=== PATIENT | male | born 1955 | race Caucasian/White ===

== ENCOUNTER 2016-12-28 16:16 | Emergency (ER) | payer OTHER ==
--- NOTE | ~2016-12-28 | CR72 ---
[facility] A Service of [facility] & [facility] / [facility] RADIOLOGY TEXT RESULTS PATIENT: ALIRIO MOLINA LOCATION: [facility] : 57 UNIT #: [id number] AGE: [address]: Tab Navarro MD SEX: M ORDER DR: [id number] [facility] [address] [place], [place] [address] [id number] MR#: [id number] Acc #: [id number] NAME: ALIRIO MOLINA : 1955 SEX: M STUDY DATE/TIME: 12/28/2016 16:53 UNIT: [facility] ROOM: STUDY DESCRIPTION: CR Chest Single View Portable Attending Physician: Tab Navarro M.D. Ordering Physician: Tab Navarro M.D. Primary Care Physician: Primary Care Physician No MEDICAL IMAGING REPORT This report is preliminary unless electronic signature is present EXAM Portable chest HISTORY Chest pain and syncope yesterday. FINDINGS The cardiac size and pulmonary vascularity are normal. No infiltrates or effusions. Internal fixation left clavicle. Multiple old left rib fractures. IMPRESSION No acute findings. Dictated by... Cristo Goldstein M.D. THIS IS AN ELECTRONICALLY VERIFIED REPORT Cristo Goldstein M.D. at 12/29/2016 11:30 PM DFL/judith TD: 12/29/2016 03:44 JOB #: [id number] MEDICAL IMAGING REPORT Page 1 of 1 COPY
--- NOTE | ~2016-12-28 | EKG ---
PATIENT: ALIRIO MOLINA UNIT #: [id number] Ventricular Rate: 74 BPM Atrial Rate: 74 BPM P-R Interval: 168 ms QRS Duration: 88 ms Q-T Interval: 408 ms QTC Calculation(Bezet): 452 ms P Moran: 60 degrees Calculated R Moran: -8 degrees Calculated T Moran: 19 degrees Diagnosis Line: Sinus rhythm with marked sinus arrhythmia Diagnosis Line: Voltage criteria for left ventricular hypertrophy Diagnosis Line: Cannot rule out Septal infarct , age undetermined Diagnosis Line: Abnormal ECG Diagnosis Line: When compared with ECG of 26-AUG-2015 21:59, Diagnosis Line: Premature ventricular complexes are no longer Diagnosis Line: Present Diagnosis Line: Minimal criteria for Septal infarct are now Diagnosis Line: Present Diagnosis Line: Confirmed by TJ ORNELAS MD ([id number]) on Diagnosis Line: 12/29/2016 8:22:33 AM INTERPRETING MD: CECI BARON
[~2016-12-28 16:16] MED LIST: DECADRON PO; FLEXERIL PO; IBUPROFEN PO; NO MEDICATIONS; PEN-VEE K PO; ROBAXIN500 MG PO; TYLENOL #3 PO; ULTRAM PO; VICODIN 5/500 T1 TAB PO; VOLTAREN75 MG PO; [UNRECOGNIZED DRUG - REMARK] PO
[2016-12-28] MEDS ORDERED: NO MEDICATIONS (16:34)
[2016-12-28 17:15] LABS: BASOPHIL# 0.1 X10e3 (0-0.3); BASOPHIL% 1.2 % (0-2.5); EOSINOPHIL# 0.2 X10e3 (0-0.7); HEMATOCRIT 43.7 % (38.0-50.0); HEMOGLOBIN 14.9 gm/dL (13.0-16.0); LYMPHOCYTE# 1.5 X10e3 (1.0-3.5); LYMPHOCYTE% 20.5 % (17.0-45.0); MEAN CELL VOLUME 86.4 FL (83-96); MEAN CORPUSCULAR HEMOGLOBIN 29.4 PG (28-34); MEAN PLATELET VOLUME 8.2 FL (6.5-11.5); MONOCYTE# 0.5 X10e3 (0-1.0); MONOCYTE% 6.7 % (3.0-12.0); NEUTROPHIL% 68.6 % (40-75); PLATELET COUNT 206 X10e3 (140-420); RED BLOOD COUNT 5.06 X10e (3.90-5.60); RED CELL DISTRIBUTION WIDTH 13.2 % (11.0-15.5); WHITE BLOOD COUNT 7.2 X10e3 (4.0-10.5)
[2016-12-28 17:17] LABS: DIFF IND NO
[2016-12-28 17:17] LABS: POC - CKMB <1.0 ng/mL (0.0-7.9); POC - TROPONIN <0.05 ng/mL (<=0.05)
[2016-12-28 17:45] LABS: BILIRUBIN, DIRECT 0.1 mg/dL (0.0-0.2); BILIRUBIN,INDIRECT 0.3 mg/dL (0.0-0.9); BILIRUBIN,TOTAL 0.4 mg/dL (0.2-2.0); BUN/CREATININE RATIO 26.25; CALCIUM SERUM 8.7 mg/dL (8.4-10.2); CREATININE SERUM 0.8 mg/dL (0.6-1.4); GLOM FILT RATE Estimated 97.1 mL/min (>60); POTASSIUM 3.5 mmol/L (3.5-5.1)
[2016-12-28 19:28] LABS: POC - TROPONIN <0.05 ng/mL (<=0.05)
== END 2016-12-28 19:10 | disposition home or self-care (01) ==
LOC: CED 16:16
PROVIDERS: Emergency Medicine
DX: R07.89 Other chest pain (principal); R06.02 Shortness of breath; F41.9 Anxiety disorder, unspecified; F15.20 Other stimulant dependence, uncomplicated
CPT/HCPCS: 36415; 71010; 80048; 80076; 82553; 83880; 84484; 85025; 93005; 99285